=== PATIENT | female | born 1965 | race Caucasian/White ===

== ENCOUNTER 2018-01-03 00:33 | Outpatient (CLI) | payer OTHER, SELFPAY ==
--- NOTE | 2018-01-03 13:17 | DI.MAMMO_ITS ---
SYMPTOMS/DIAGNOSIS: SCREENING, Z12.31, PREVENTATIVE HEALTH CARE, Z00.00 BILATERAL SCREENING MAMMOGRAM: Comparison is made with exams from 2012 through 2015. The breasts are composed of heterogeneously dense, nodular fibroglandular tissue, breast density category C. Scattered benign calcifications are again noted bilaterally. No suspicious masses or suspicious microcalcifications are seen. IMPRESSION: Category 2C, negative mammogram with benign findings. Yearly screening mammography is recommended. SA ASSESSMENT OF FINDINGS: Negative with benign findings. Category 2. Patient will receive a letter notifying them of these results. Bi-RADS category C. The breasts are heterogeneously dense, which may obscure small masses.
== END 2018-01-03 00:53 ==
PROVIDERS: PCP Family Medicine; Visit Provider Family Medicine
DX: Z00.00 Encounter for general adult medical examination without abnormal findings (principal); Z12.31 Encounter for screening mammogram for malignant neoplasm of breast
CPT/HCPCS: 77063; 77067

== ENCOUNTER 2018-01-17 00:29 | Outpatient (CLI) | payer OTHER, SELFPAY ==
--- NOTE | 2018-01-17 12:55 | DI.US_ITS ---
SYMPTOMS/DIAGNOSIS: PELVIC BLOATING, DISCOMFORT, ABD BLOATING, POSTMENOPAUSAL DISORDER, ABD DISTENTION, R14.0, N95.1 PELVIC ULTRASOUND: Pelvic ultrasound was performed transabdominally and transvaginally. Please see the accompanying data sheet for measurements of the pelvic structures. Limited scanning of the kidneys is unremarkable. No free fluid identified in the cul-de -sac. The uterus measures 7.2 x 3.8 x 4.7 cm. There is a small fundal hypoechoic well circumscribed mass probably representing a fibroid measuring about 7 mm in greatest diameter. No other focal abnormality of the myometrium noted. Endometrial stripe is about 3 mm in thickness and appears homogeneous. The ovaries are unremarkable in appearance and symmetrical in size. CONCLUSION: Probable small fundal uterine fibroid. The examination is otherwise unremarkable.
== END 2018-01-17 00:49 ==
PROVIDERS: PCP Family Medicine; Visit Provider Obstetrics & Gynecology Gynecology
DX: R10.2 Pelvic and perineal pain (principal); R14.0 Abdominal distension (gaseous); N95.1 Menopausal and female climacteric states; D25.9 Leiomyoma of uterus, unspecified
CPT/HCPCS: 76830; 76856

== ENCOUNTER 2018-07-03 15:25 | Outpatient (CLI) | payer OTHER, SELFPAY ==
--- NOTE | 2018-07-03 15:24 | DI.RAD_ITS ---
SYMPTOMS/DIAGNOSIS: RIGHT KNEE PAIN RIGHT KNEE: Multiple views. No bone or joint abnormality is identified. The soft tissues are unremarkable. IMPRESSION: Negative examination.
== END 2018-07-03 15:45 ==
PROVIDERS: PCP Family Medicine; Visit Provider Physician Assistant
DX: M25.561 Pain in right knee (principal)
CPT/HCPCS: 73564

== ENCOUNTER 2018-08-01 17:31 | Outpatient (REF) | payer OTHER, SELFPAY ==
--- NOTE | 2018-08-01 16:35 | PAPFT_PTH ---
PATIENT: Nanci Osborn LOC: [facility] U#:[id number] AGE/SX: 52/F ROOM: RE08/01/[address]: Alyssa Mayberry : 1965 BED: DIS: 08/01/2018 SPEC #: [id number] RECD: 08/02/18 12:58 STATUS: JANIE REQ #: [id number] MICHAEL: 08/01/18 16:[address]: Alyssa Mayberry DEPT: [facility] Cytology RECD BY: Candelaria Malin Tissues: 1 - CX/ENDOCX FOR PAP SMEARS Procedures: PAP THIN PREP/UVM Screening HPV DNA PROBE Comments: [id number]
== END 2018-08-01 17:51 ==
LOC: NCHCN 17:31
PROVIDERS: PCP Family Medicine; Visit Provider Family Medicine
DX: Z00.00 Encounter for general adult medical examination without abnormal findings (principal); Z12.4 Encounter for screening for malignant neoplasm of cervix; Z11.51 Encounter for screening for human papillomavirus (HPV); Z01.419 Encounter for gynecological examination (general) (routine) without abnormal findings
CPT/HCPCS: 88142; 87624

== ENCOUNTER 2019-06-17 01:25 | Outpatient (CLI) | payer OTHER, SELFPAY ==
--- NOTE | 2019-06-17 11:45 | DI.NM_ITS ---
APPROVED REPORT Exam: Exercise Treadmill Patient Location: Out-Patient Room/Bed: Stress Nurse: Michaela Delatorre RN BMI: 22.49 Baseline Rhythm: Sinus Rhythm Comment: T wave inversions in leads V1, V2, V3 Medical History Allergies: Sulfa Cardiac Risk Factors: FHX of CAD, Asthma Exercise History: Physically active Lung Sounds: Clear to auscultation Heart Sounds: Regular Stress Test Details Test: Exercise stress testing was performed using a Alphonso protocol. Nuclear Acquisition: Rest Tc-99m/Stress Tc-99m 1 day Rest Isotope: Tc-99m Sestamibi. Dose: 10.5 Date: 06/17/2019 Stress Isotope: Tc-99m Sestamibi. Dose: 33.0 Date: 06/17/2019 HR Resting HR Supine: 47 bpm Max Heart Rate (APMHR): 166 bpm Resting HR Standin bpm Target HR (85% APMHR): 141 bpm Max HR Achieved: 158 bpm % of APMHR: 95 Recovery HR: 65 bpm HR response to stress: Normal HR response to stress BP Resting BP Supine: 158/98 mmHg Resting BP Standin/96 mmHg Max BP: 222/108 mmHg Recovery BP: 164/85 mmHg BP response to stress: Exaggerated response ECG Resting ECG: Sinus Rhythm with TWI anterolaterally Stress ECG: Sinus Tachycardia ST Change: Downsloping ST depressions Lead(s): II, III, aVF, V3, V4, V5, V6 Stage: [address] Deviation: 1.5 mm Arrhythmia: None Recovery ECG: Sinus Rhythm, Sinus Rhythm Recovery ST Change: Downward sloping ST segments Lead(s): II, III, aVF, V3, V4, V5, V6 Recovery ST Deviation: 1.5 mm Recovery Arrhythmia: Brief ventricular trigeminy and quadrigeminy pattern. Clinical Reason for Termination: Fatigue Stress Symptoms: None Exercise duration: 13 min00 sec Highest Stage Reached: Stage 5: 5.0 mph at 18% grade. Exercise capacity: 14.16 METs Functional Capacity: Above average capacity Stress ECG Conclusion 1. Patient exercised for 13 minutes (14 METS). Rate-pressure product was 28,000. 2. The patient had no symptoms suggestive of ischemia. The patient had a hypertensive response to ex ercise. 3. There were 1.5mm horizontal and downsloping ST depressions both during stress and recovery. 4. These ST depressions normalized at 8 minutes of recovery. Critical Notification Physician Notified Date: 06/17/2019 Time: 1350 Physician Name: Dr Pimentel. Protocol Used: Alphonso Protocol Stress Test Summary STAGE Time (mins) Speed (mph) Grade (%) HR BP SYMPTOMS METS Supine 47 158/98 Standing 53 152/96 1 3 1.7 10 83 170/100 4.6 2 6 2.5 12 106 176/85 7 3 9 3.4 14 126 178/95 10.2 4 12 4.2 16 156 182/95 12.9 5 15 5.0 18 156 17.2 1 min recovery 190/96 96 3 min recovery 222/108 77 6 min recovery 164/85 65 10 min recovery 68 MPI Conclusion The ejection fraction was 48% with stress. There were no wall motion abnormalities. There was no evidence of ischemia on the imaging portion of this exam. This represents a discordant nuclear stress test. I discussed the results with the patient. Radiologist Interpretation Radiologist Interpretation by: Smooth Washington MD Interpretation Date/Time: 06/17/2019 15:24:45
[2019-06-17] MEDS: Normal Saline Flush 10 ML SYR IVP (15:00)
== END 2019-06-17 01:45 ==
PROVIDERS: PCP Family Medicine; Visit Provider Family Medicine
DX: R06.09 Other forms of dyspnea (principal); R06.02 Shortness of breath; J45.909 Unspecified asthma, uncomplicated; Z82.49 Family history of ischemic heart disease and other diseases of the circulatory system
CPT/HCPCS: 78452; 93017

== ENCOUNTER 2019-06-17 11:11 | Outpatient (CLI) | payer OTHER, SELFPAY ==
--- NOTE | 2019-06-17 11:15 | DI.CT_ITS ---
EXAM: CT HEAD FACIAL WO CLINICAL HISTORY: fell and hit head, eye, contusion of head, S00.93XA TECHNIQUE: COMPARISON: No exams were available for comparison FINDINGS: CT examination of the head and additional multi slice multi planar facial CT were performed without c ontrast administration. There is an apparent soft tissue hematoma overlying the left frontal/periorb ital region. The left and right orbital contents appear intact. No abnormality of the globe. No re tro bulbar hemorrhage. No cranial or facial fracture. Paranasal sinuses are well aerated as are the mastoid air cells. Temporal bone structures appear intact. No abnormality TM joints. Intracranially, ventricular system is normal appearance. There is no evidence acute intracranial hem orrhage, mass effect, or midline shift. IMPRESSION: Soft tissue edema/hematoma over the left frontal and periorbital region. No evidence of acute fracture, orbital injury, or intracranial injury.
== END 2019-06-17 11:31 ==
PROVIDERS: PCP Family Medicine; Visit Provider Family Medicine
DX: S00.93XA Contusion of unspecified part of head, initial encounter (principal); S00.12XA Contusion of left eyelid and periocular area, initial encounter; R60.0 Localized edema
CPT/HCPCS: 70450; 70486

== ENCOUNTER 2019-06-19 02:47 | Outpatient (CLI) | payer OTHER, SELFPAY | END 2019-06-19 03:07 | PROVIDERS: PCP Family Medicine; Visit Provider Family Medicine | DX: J45.909 Unspecified asthma, uncomplicated (principal); Z53.8 Procedure and treatment not carried out for other reasons ==

== ENCOUNTER 2020-01-06 01:01 | Outpatient (CLI) | payer OTHER, SELFPAY ==
--- NOTE | 2020-01-06 | DI.MAMMO_ITS ---
EXAM: MAMMO SCREENING CLINICAL HISTORY: SCREENING, [facility],Z00.00,Z12.31 TECHNIQUE: Mammograms were interpreted according to the usual protocol including computer analysis w [employer] CAD system, tomosynthesis and C-view imaging. COMPARISON: 2011 through 2017 FINDINGS: The breasts are composed of heterogeneously dense fibroglandular densities, Breast Density category C . No suspicious masses or suspicious microcalcifications are seen. There are scattered benign-appearin g calcifications. There is postsurgical scarring. No skin thickening or abnormal axillary lymph nodes are seen. There has been no significant change from prior exams. IMPRESSION: BI-RADS Cat 2 - Benign Findings Yearly screening mammography is recommended. Breast Density Category C, heterogeneously Dense. The mammogram demonstrates the patient's breast tissue is dense. Dense breast tissue is very common a nd is not abnormal but dense breast tissue can make it harder to find cancer on a mammogram. Also, de nse breast tissue may increase breast cancer risk. This information about the result of the mammogram report was provided to the patient to raise their awareness. Use this report when you speak with the patient about their risks for breast cancer, which includes their family history. At that time, you may recommend additional screening tests (Ultrasound or MRI) as they might be useful based on their r isk. A negative radiographic report should not delay biopsy if a dominant or clinically suspicious mass is present. Up to ten percent of cancers are not identified on mammography. A negative report may reinforce clinical impression. Adenosis and dense breasts may obscure an underlying neoplasm. False positive reports average 6 to 10%.
== END 2020-01-06 01:21 ==
PROVIDERS: PCP Family Medicine; Visit Provider Family Medicine
DX: Z12.31 Encounter for screening mammogram for malignant neoplasm of breast (principal); Z00.00 Encounter for general adult medical examination without abnormal findings
CPT/HCPCS: 77063; 77067

== ENCOUNTER 2020-01-09 08:33 | Outpatient (CLI) | payer OTHER, SELFPAY ==
[2020-01-10 15:09] LABS: COVID-19 RT-PCR Result NEGATIVE (Negative)
== END 2020-01-09 08:53 ==
PROVIDERS: PCP Family Medicine; Visit Provider Family Medicine
DX: Z11.59 Encounter for screening for other viral diseases (principal); Z01.811 Encounter for preprocedural respiratory examination
CPT/HCPCS: U0003

== ENCOUNTER 2020-01-12 04:12 | Outpatient (CLI) | payer OTHER, SELFPAY ==
[2020-01-12] MEDS: Albuterol HFA 18 GM 200 PUFF INH IH (09:22)
[2020-01-12] MEDS: Inhaler, Assist Device 1 EACH MC (09:23)
--- NOTE | 2020-01-14 12:00 | W.PFT ---
Date of service: 01/12/20 Time of Service: 08:04 Pulmonary Function Test Result Interpretation Spirometry: Shows no evidence of obstructive airways disease, no bronchodilator response Lung Volumes: No evidence of restriction, mild hyperinflation and air trapping Diffusion Capacity: Mildly reduced which is normal when corrected to alveolar volume Airway Pressure: Normal Impression While there is no evidence of obstructive airways disease, no bronchodilator response, there is mild hyperinflation and air trapping and mild diffusion defect, this is however normal when corrected to alveolar volume. When the study was compared to 06/13/2016, the patient has a slight improvement in FVC and 100 cc improvement in FEV1 while her total lung capacity has improved, part of this is because measures of hyperinflation and air trapping have also increased. Diffusion capacity has slightly declined Clinical Correlation therefore is recommended.
== END 2020-01-12 04:32 ==
PROVIDERS: PCP Family Medicine; Visit Provider Family Medicine
DX: R06.09 Other forms of dyspnea (principal)
CPT/HCPCS: 94060; 94726; 94729

== ENCOUNTER 2020-03-03 18:07 | Outpatient (REF) | payer OTHER, SELFPAY ==
[2020-03-04 20:15] LABS: COVID-19 RT-PCR UVMMC Result Negative (Negative)
== END 2020-03-03 18:27 ==
LOC: NCHCN 18:07
PROVIDERS: PCP Family Medicine; Visit Provider Nurse Practitioner Family
DX: Z11.59 Encounter for screening for other viral diseases (principal)
CPT/HCPCS: U0003

== ENCOUNTER 2020-03-10 23:24 | Outpatient (CLI) | payer OTHER, SELFPAY ==
--- NOTE | 2020-03-10 | DI.RAD_ITS ---
EXAM: XR FOOT RT COMPLETE CLINICAL HISTORY: RT FOOT PAIN M79.671, TRAUMA TO RT FOOT, PAINFUL SIDE OF FOOT. TECHNIQUE: 2D digital imaging was performed. COMPARISON: No exams were available for comparison FINDINGS: There is an oblique mildly displaced fracture in the mid-distal 3rd of the 5th metatarsal. No radiop aque foreign body. No osseous lesion. No additional fractures evident. Lisfranc joint appears unre markable. IMPRESSION: Oblique mildly displaced fracture of the distal half of the 5th metatarsal. DATA REPOSITORY: RADIATION DOSE DELIVERED:
== END 2020-03-10 23:44 ==
PROVIDERS: PCP Family Medicine; Visit Provider Nurse Practitioner Family
DX: S92.351A Displaced fracture of fifth metatarsal bone, right foot, initial encounter for closed fracture (principal)
CPT/HCPCS: 73630

== ENCOUNTER 2020-03-24 17:26 | Outpatient (REF) | payer OTHER, SELFPAY ==
[2020-03-26 14:10] LABS: COVID-19 RT-PCR UVMMC Result Negative (Negative)
== END 2020-03-24 17:46 ==
LOC: NCHCN 17:26
PROVIDERS: PCP Family Medicine; Visit Provider Nurse Practitioner Family
DX: Z11.59 Encounter for screening for other viral diseases (principal)
CPT/HCPCS: U0003

== ENCOUNTER 2020-04-08 14:20 | Outpatient (CLI) | payer OTHER, SELFPAY ==
--- NOTE | 2020-04-08 13:30 | DI.RAD_ITS ---
EXAM: XR FOOT RT COMPLETE CLINICAL HISTORY: follow up TECHNIQUE: COMPARISON: CR XR FOOT RT COMPLETE from 03/10/2020 FINDINGS: Three views were obtained and show previously described fracture the 5th metatarsal, there appears to be early healing at the fracture site. There appears to be slight interval increase in angulation at the fracture site in comparison with the prior examination of March 10, however this may be due to differences in projection. No other significant findings at this time. IMPRESSION: RADIATION DOSE DELIVERED: Total DLP
--- OUTSIDE RECORDS SUMMARY | 2020-04-08 14:22 | XMS_ITS ---
:1965 Author Care Team Providers Name Role Phone PRAVEEN RENTERIA Primary Care Provider [phone] Allergies Code Code System Name Reaction Severity Status Onset 080072 RxNorm Bactrim ? ? Active ? Medications Name Status Start Date Stop Date ? ? Emily Allergy Active ? Not available CombiPatch 0.05 mg-0.14 mg/24 hr transdermal Active ? Not available Apply 1 patch twice a week by transdermal route. Miralax 17 gram oral powder packet Active ? Not available Take 1 packet every day by oral route. Proair Digihaler 90 mcg/actuation aerosol powder breath act, sen sor Active ? Not available Inhale 2 puffs every 4 hours by inhalation route. Symbicort 160 mcg-4.5 mcg/actuation HFA aerosol inhaler Active ? Not available Inhale 2 puffs twice a day by inhalation route. Xopenex HFA 45 mcg/actuation aerosol inhaler Active ? Not available Inhale 2 puffs every 6 hours by inhalation route as needed. Problems Name Status Onset Date Source ? Asthma Unknown 06/13/2019 ? Mild Intermittent Asthma Active 06/13/2019 ? Procedures None recorded. Results Lab Results None recorded. Past Encounters 08/07/2019 Mild Intermittent Asthma Soraya Marley MD: [address] [place] [address] Dr apryl Hernadez [address] [place] [phone], Ph. 06/13/2019 Mild Intermittent Asthma Soraya Marley MD: [address] [place] [address] Dr apryl Hernadez , [place] [phone], Ph. Social History Tobacco Smoking Status Never Smoker Vaccine List Vaccine Type Hep A, adult 04/09/2017 influenza, injectable, quadrivalent 12/27/2018 pneumococcal polysaccharide PPV23 11/10/2016 Tdap 07/10/2012 Plan of Care Reminders Provider Appointments None ? ? recorded. Lab None ? ? recorded. Referral None ? ? recorded. Procedures None ? ? recorded. Surgeries None ? ? recorded. Imaging None ? ? recorded. Vitals Height Weight BMI Blood Pressure 158.75 cm 58.8 kg 23.3 kg/m2 118/64 mm[Hg]
== END 2020-04-08 14:40 ==
PROVIDERS: PCP Family Medicine; Referring Provider Family Medicine; Visit Provider Physician Assistant Surgical
DX: S92.351A Displaced fracture of fifth metatarsal bone, right foot, initial encounter for closed fracture (principal)
CPT/HCPCS: 73630

== ENCOUNTER 2020-04-22 14:12 | Outpatient (CLI) | payer OTHER, SELFPAY ==
--- NOTE | 2020-04-22 14:00 | DI.RAD_ITS ---
EXAM: XR FOOT RT COMPLETE CLINICAL HISTORY: f/u 5th MT frx. TECHNIQUE: 2D digital imaging was performed. COMPARISON: CR XR FOOT RT COMPLETE from 04/08/2020 FINDINGS: No radiographic change in the appearance of the oblique fracture of the mid and distal shaft of the 5 th metatarsal. Minimal callus formation. No further displacement evident. No additional fracture s een. Some nonuse osteopenia is evident on today's images. IMPRESSION: DATA REPOSITORY: RADIATION DOSE DELIVERED:
== END 2020-04-22 14:32 ==
PROVIDERS: PCP Family Medicine; Visit Provider Student in an Organized Health Care Education/Training Program
DX: S92.351A Displaced fracture of fifth metatarsal bone, right foot, initial encounter for closed fracture (principal)
CPT/HCPCS: 73630

== ENCOUNTER 2020-05-20 14:57 | Outpatient (CLI) | payer OTHER, SELFPAY ==
--- NOTE | 2020-05-20 13:15 | DI.RAD_ITS ---
EXAM: XR FOOT RT COMPLETE CLINICAL HISTORY: follow up. TECHNIQUE: 2D digital imaging was performed. COMPARISON: CR XR FOOT RT COMPLETE from 04/22/2020 FINDINGS: There is further healing at the fracture site is at the mid-distal diaphysis of the 5th meta tarsal. Some further callus formation but the fracture line is still quite evident on the oblique view; less so on the AP view. Fracture line still visible in the lateral view. IMPRESSION: Mild further healing. Fracture line still visible. No further displacement. DATA REPOSITORY: RADIATION DOSE DELIVERED:
== END 2020-05-20 14:58 | disposition home or self-care (01) ==
LOC: DIORS 14:58
PROVIDERS: PCP Family Medicine; Referring Provider Family Medicine; Visit Provider Physician Assistant Surgical
DX: S92.351D Displaced fracture of fifth metatarsal bone, right foot, subsequent encounter for fracture with routine healing (principal)
CPT/HCPCS: 73630

== ENCOUNTER 2020-06-17 01:50 | Outpatient (CLI) | payer OTHER, SELFPAY ==
--- NOTE | 2020-06-17 10:45 | DI.RAD_ITS ---
EXAM: XR FOOT RT COMPLETE CLINICAL HISTORY: f/u R 5th MT fracture,S92.351D. TECHNIQUE: 2D digital imaging was performed. COMPARISON: CR XR FOOT RT COMPLETE from 05/20/2020 FINDINGS: Again noted is a healing for a oblique fracture of the 5th metatarsal diaphysis. No further displace ment. Minimal increase in callus formation. Very little change from the previous study. No additio nal fractures identified. IMPRESSION: DATA REPOSITORY: RADIATION DOSE DELIVERED:
== END 2020-06-17 02:10 ==
PROVIDERS: PCP Family Medicine; Visit Provider Student in an Organized Health Care Education/Training Program
DX: S92.351D Displaced fracture of fifth metatarsal bone, right foot, subsequent encounter for fracture with routine healing (principal)
CPT/HCPCS: 73630

== ENCOUNTER 2020-12-24 09:42 | Outpatient (REF) | payer OTHER, SELFPAY ==
[2020-12-25 01:34] LABS: COVID-19 RT-PCR UVMMC Result Negative (Negative)
== END 2020-12-24 09:43 | disposition home or self-care (01) ==
LOC: NCHCN 09:42
PROVIDERS: PCP Family Medicine; Visit Provider Family Medicine
DX: Z20.822 Contact with and (suspected) exposure to COVID-19 (principal)
CPT/HCPCS: U0003

== ENCOUNTER 2021-02-02 16:17 | Outpatient (REF) | payer OTHER, SELFPAY ==
[2021-02-03 02:26] LABS: COVID-19 RT-PCR UVMMC Result Negative (Negative)
== END 2021-02-02 16:18 | disposition home or self-care (01) ==
LOC: NCHCN 16:17
PROVIDERS: PCP Family Medicine; Visit Provider Internal Medicine
DX: Z20.822 Contact with and (suspected) exposure to COVID-19 (principal)
CPT/HCPCS: U0003

== ENCOUNTER 2022-06-05 15:26 | Outpatient (CLI) | payer BC, SELFPAY ==
--- NOTE | 2022-06-05 | DI.RAD_ITS ---
Exam(s) XR FOOT RT COMPLETE EXAM: XR FOOT RT COMPLETE CLINICAL HISTORY: METATARSALGIA RT, M77.41, RT PINKY TOE DISLOCATION. TECHNIQUE: 2D digital imaging was performed of the right foot. Three images were obtained. AP, obl ique and lateral views were obtained. COMPARISON: CR XR FOOT RT COMPLETE from 06/17/2020 FINDINGS: BONES: There is an acute fracture of the midshaft of the proximal phalanx of the 5th toe. 2-3 mm med ial displacement of the distal fracture is noted. There is an old healed 5th metatarsal fracture. N o bony destructive lesion is seen. JOINTS: No dislocation present. SOFT TISSUE: Normal. IMPRESSION: Acute mildly displaced fracture of the proximal phalanx of the 5th toe. DATA REPOSITORY: RADIATION DOSE DELIVERED:
== END 2022-06-05 15:46 ==
LOC: DI 15:26
PROVIDERS: PCP Family Medicine; Visit Provider Family Medicine
DX: M79.671 Pain in right foot (principal); M77.41 Metatarsalgia, right foot; S92.511A Displaced fracture of proximal phalanx of right lesser toe(s), initial encounter for closed fracture; X58.XXXA Exposure to other specified factors, initial encounter
CPT/HCPCS: 73630

== ENCOUNTER → 2022-11-14 02:32 | Outpatient (CLI) | payer BC, SELFPAY ==
--- NOTE | 2022-11-14 | DI.MAMMO_ITS ---
Exam(s) MAMMO SCREENING EXAM: MAMMO SCREENING CLINICAL HISTORY: SCREENING, Z12.31. TECHNIQUE: Bilateral full field digital CC and MLO mammographic images were obtained with 3D tomosyn thesis and utilizing computer aided detection (CAD). COMPARISON: Prior mammograms were reviewed. FINDINGS: Fibroglandular tissue pattern is again noted be moderately dense. There are no new spiculated masses nor malignant appearing microcalcification groups. Numerous benign-appearing microcalcifications are again noted in both breasts. There is no new significant architectural distortion nor skin thickening-retraction. IMPRESSION: No radiographic evidence of malignancy. Stable benign-appearing findings. BI-RADS Category 2 - Benign Findings Breast Density - Category C - Heterogeneously dense Breast density Category C or D implies that the patient has dense breast tissue. Dense breast tissue can make it harder to find cancer on a mammogram. Dense breast tissue is also associated with an incr eased risk of breast cancer. This information about the result of the mammogram report was provided to the patient to raise their awareness. Use this report when you speak with the patient about their risks for breast cancer, which includes their family history. At that time, you may recommend additional screening tests (Ultrasoun d or MRI) as these tests may add significant information. A negative radiographic report should not delay biopsy if a dominant or clinically suspicious mass is present. Up to ten percent of cancers are not identified on mammography. A negative report may reinforce clinical impression. Adenosis and dense breasts may obscure an underlying neoplasm. False positive reports average 6 to 10%. Patient will receive a letter notifying them of these results.
== END ==
PROVIDERS: PCP Family Medicine; Visit Provider Family Medicine
DX: Z12.31 Encounter for screening mammogram for malignant neoplasm of breast (principal)
CPT/HCPCS: 77063; 77067

== ENCOUNTER 2023-07-10 10:34 | Outpatient (CLI) | payer BC, SELFPAY ==
--- NOTE | 2023-07-10 10:30 | RT.EKG_ITS ---
APPROVED REPORT Exam: Resting ECG Reason for Exam: CAD Patient Location: O HR:57 bpm ECG Measurements Heart Rate 57 AXIS HI 149 P 59 QRSd 79 QRS 39 QT 445 T 19 QTc 434 Conclusion Sinus rhythm...normal P axis, V-rate 50- 99 Normal Electrocardiogram
== END 2023-07-10 10:35 | disposition home or self-care (01) ==
LOC: DI.CARD 10:35
PROVIDERS: PCP Family Medicine; Visit Provider Internal Medicine Cardiovascular Disease
DX: I25.10 Atherosclerotic heart disease of native coronary artery without angina pectoris (principal)
CPT/HCPCS: 93010

== ENCOUNTER 2023-09-06 11:26 | Outpatient (REF) | payer BC, SELFPAY ==
--- NOTE | 2023-09-06 16:50 | PAPFT_PTH ---
PATIENT: Nanci Osborn LOC: [facility]#:[id number] AGE/SX: 57/F ROOM: RE09/06/[address]: Simran Dolan : 1965 BED: DIS: 09/06/2023 SPEC #: [id number] RECD: 09/07/23 13:36 STATUS: JANIE REPawan #: [id number] MICHAEL: 09/06/23 16:[address]: Simran Dolan DEPT: [facility] Cytology RECD BY: Candelaria Malin ENTERED: 09/07/23 13:36 SP TYPE: PAPFT OTHR DR: Alyssa Mayberry Tissues: 1 - CX/ENDOCX FOR PAP SMEARS Procedures: PAP THIN PREP/UVM Screening HPV DNA PROBE Comments: [id number]
== END 2023-09-06 11:27 | disposition home or self-care (01) ==
LOC: NCHCN 11:26
PROVIDERS: PCP Family Medicine; Visit Provider Family Medicine
DX: Z12.4 Encounter for screening for malignant neoplasm of cervix (principal); Z11.51 Encounter for screening for human papillomavirus (HPV); Z00.00 Encounter for general adult medical examination without abnormal findings
CPT/HCPCS: 88142; 87624

== ENCOUNTER 2024-04-24 13:39 | Outpatient (CLI) | payer OTHER, SELFPAY ==
[2024-04-24 13:45] LABS: ALT 38 U/L (14-59); AST 25 U/L (15-37); Albumin 3.7 g/dL (3.4-5.0); Alkaline Phosphatase 66 U/L (46-116); Anion Gap 3.1 mmol/L (3-11); BUN 17 mg/dL (7-18); Bilirubin, Total 0.34 mg/dL (0.2-1.0); CO2 33.9 mmol/L (21.0-32.0); Calcium 8.7 mg/dL (8.5-10.1); Chloride 105 mmol/L (98-107); Glucose 97 mg/dL (74-106); Potassium 4.3 mmol/L (3.5-5.1); Sodium 142 mmol/L (136-145); Total Protein 7.6 g/dL (6.4-8.2)
== END 2024-04-24 13:40 | disposition home or self-care (01) ==
LOC: LBO 13:39
PROVIDERS: PCP Family Medicine; Referring Provider Obstetrics & Gynecology Gynecology; Visit Provider Obstetrics & Gynecology Gynecology
DX: Z79.890 Hormone replacement therapy (principal)
CPT/HCPCS: 36415; 80053

== ENCOUNTER 2024-06-17 15:48 | Outpatient (CLI) | payer OTHER, SELFPAY ==
[2024-06-17 15:52] LABS: Abs Immature Grans 0.02 10^3/uL (0.0-0.06); Absolute Basophil Count 0.06 10^3/uL (0.0-0.2); Absolute Eosinophil Count 0.09 10^3/uL (0.0-0.7); Absolute Lymphocyte Count 1.86 10^3/uL (1.2-3.4); Absolute Monocyte Count 0.59 10^3/uL (0.1-0.8); Absolute Neutrophil Count 6.44 10^3/uL (1.2-6.7); Basophils % 0.7 %; HCT 37.9 % (36.0-46.0); HGB 12.3 g/dL (11.2-15.7); Immature Grans % 0.2 %; Lymphocytes % 20.5 %; MCH 29.1 pg (27.0-33.0); MCHC 32.5 % (32.0-36.0); MCV 90 fL (80-95); MPV 10.1 fL (8.0-11.0); Monocytes % 6.5 %; Neutrophils % 71.1 %; Platelet Count 394 10^3/uL (130-400); RBC 4.23 10^6/uL (3.93-5.22); RDW 12.6 % (11.7-14.6); RDW-SD 41.1 fL; WBC 9.06 10^3/uL (4.4-10.8)
== END 2024-06-17 15:49 | disposition home or self-care (01) ==
LOC: LBO 15:49
PROVIDERS: PCP Family Medicine; Visit Provider Obstetrics & Gynecology
DX: N93.9 Abnormal uterine and vaginal bleeding, unspecified (principal); R06.02 Shortness of breath; N83.8 Other noninflammatory disorders of ovary, fallopian tube and broad ligament; Z87.42 Personal history of other diseases of the female genital tract; N95.1 Menopausal and female climacteric states
CPT/HCPCS: 36415; 85025

== ENCOUNTER 2024-07-31 00:33 | Outpatient (CLI) | payer OTHER, SELFPAY ==
--- NOTE | 2024-07-31 13:45 | DI.US_ITS ---
APPROVED REPORT Exam: Exercise Treadmill Patient Location: Out-Patient Room/Bed: Stress Nurse: Allyson Villegas RN Ordering Provider:CLEM TOMLINSOND, Contact Number: BMI: 22.14 Baseline Rhythm: Sinus Bradycardia Indications: Decreased exercise capacity, chest pain Medical History Medical History: CAD, SOB on exertion Cardiac Medications: Albuterol sulfate, aspirin, estradiol patch, fexofenadine, kyleena, sertraline, atorvastatin Allergies: Bactrim Cardiac Risk Factors: Family hx, CVD Previous Cardiac Procedures: Cardiac stent (LAD)-2019 Pretest Chest Pain Characteristics: None Exercise History: Physically active Physical Disabilities: None Lung Sounds: Clear to auscultation Heart Sounds: Regular Stress Test Details Test: Exercise stress testing was performed using a Alphonso protocol. Rest Stress HR Resting HR Supine: 50 bpm Max Heart Rate (APMHR): 161 bpm Resting HR Standin bpm Target HR (85% APMHR): 137 bpm Max HR Achieved: 146 bpm % of APMHR: 91 Recovery HR: 61 bpm HR response to stress: Normal HR response to stress BP Resting BP Supine: 128/72 mmHg Resting BP Standin/70 mmHg Max BP: 180/82 mmHg Recovery BP: 124/78 mmHg BP response to stress: Normal blood pressure response to stress. ECG Resting ECG: Sinus Bradycardia Ectopy: None Stress ECG: Sinus Tachycardia ST Change: No significant ST segment changes noted Arrhythmia: None Recovery ECG: Sinus Rhythm Recovery ST Change: No significant ST segment changes noted Recovery Arrhythmia: Rare PAC Clinical Reason for Termination: Target HR Achieved, artifact Stress Symptoms: None Exercise duration: 12 min59 sec Highest Stage Reached: Stage 5: 5.0 mph at 18% grade. Exercise capacity: 14.15 METs Angina Score: None Kimbrough Treadmill Score: 11.7 Rate Pressure Product: 21523 Stress ECG Conclusion 1. Resting electrocardiogram was normal 2. Patient exercised on the Alphonso protocol at a workload of 14 METS, completing 1 minute of stage V 3. Normal heart rate and blood pressure response to exercise. 4. Patient achieved 91% of maximal predicted heart rate for age 5. There was no electrocardiographic or echocardiographic evidence of myocardial ischemia 6. There were no significant dysrhythmias Kimbrough Treadmill Score is 11.7 which is Low risk. Stress Test Summary STAGE Time (mins) Speed (mph) Grade (%) HR BP SpO2 SYMPTOMS METS Supine 50 128/72 96% Standing 55 134/70 1 3 1.7 10 88 138/78 94% 4.5 2 6 2.5 12 102 168/88 98% 7 3 9 3.4 14 114 170/80 10 4 12 4.2 16 145 13 1 min recovery 73 180/82 3 min recovery 61 124/78
== END 2024-07-31 00:53 ==
LOC: DI 00:33
PROVIDERS: PCP Family Medicine; Visit Provider Internal Medicine Cardiovascular Disease
DX: I25.10 Atherosclerotic heart disease of native coronary artery without angina pectoris (principal)
CPT/HCPCS: 93350; 93017

== ENCOUNTER 2024-10-20 02:30 | Outpatient (CLI) | payer OTHER, SELFPAY ==
--- NOTE | 2024-10-20 | DI.MAMMO_ITS ---
Exam(s) MAMMO SCREENING EXAM: MAMMO SCREENING CLINICAL HISTORY: Screening, Z12.31. TECHNIQUE: Bilateral full field digital CC and MLO mammographic images were obtained with 3D tomosynthesis and utilizing computer aided detection (CAD). COMPARISON: Prior mammograms were reviewed. Previous bilateral reduction surgery. FINDINGS: Fibroglandular tissue is again noted be moderately dense. In the left breast on CC view there is an increase in amount of architectural distortion located 3.5 cm in from the nipple on the CC view. Spot compression and ultrasound recommended. In the right breast there are few small nodular densities noted posteriorly, more evident than previous. Spot compression views and ultrasound recommended There benign microcalcifications and macrocalcifications scattered throughout both breasts. There are no obvious malignant-appearing microcalcification groups. No skin thickening-retraction IMPRESSION: 1. There appears to be increase in architectural distortion in the left breast, best seen on the CC view. Spot compression views and ultrasound recommended to rule out malignancy at this location. 2. Nodular densities posteriorly in the opposite-right breast. Also require spot compression views and ultrasound. BI-RADS Category 0 - Incomplete: Need additional imaging evaluation Breast Density - Category C - The breast are heterogeneously dense, which may obscure small masses. Breast density Category C or D implies that the patient has dense breast tissue. Dense breast tissue can make it harder to find cancer on a mammogram. Dense breast tissue is also associated with an increased risk of breast cancer. This information about the result of the mammogram report was provided to the patient to raise their awareness. Use this report when you speak with the patient about their risks for breast cancer, which includes their family history. At that time, you may recommend additional screening tests (Ultrasound or MRI) as these tests may add significant information. A negative radiographic report should not delay biopsy if a dominant or clinically suspicious mass is present. Up to ten percent of cancers are not identified on mammography. A negative report may reinforce clinical impression. Adenosis and dense breasts may obscure an underlying neoplasm. False positive reports average 6 to 10%. Patient will receive a letter notifying them of these results.
== END 2024-10-20 02:50 ==
LOC: DI 02:30
PROVIDERS: PCP Family Medicine; Visit Provider Family Medicine
DX: Z12.31 Encounter for screening mammogram for malignant neoplasm of breast (principal); R92.333 Mammographic heterogeneous density, bilateral breasts
CPT/HCPCS: 77063; 77067

== ENCOUNTER 2024-11-18 02:08 | Outpatient (CLI) | payer OTHER, SELFPAY ==
--- NOTE | 2024-11-18 | DI.US_ITS ---
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 TECHNIQUE: Craniocaudal and mediolateral oblique Full Field Digital Mammography views of the bilateral breast with Computer Aided Diagnosis followed by Tomosynthesis and complete bilateral breast ultrasound. All 4 quadrants, the retroareolar region and the axilla of both breast were evaluated sonogra phically. COMPARISON: Comparison is made with prior examinations. FINDINGS: The patient has a history of bilateral breast reduction surgery. Mammography/Tomosynthesis: Masses/Architectural Distortion: There are no new areas of architectural distortion or breast nodules present. The areas of concern are unchanged compared to prior examinations. Microcalcifictions: No suspicious pleomorphic-type are seen. Skin Thickening/Nipple Retraction: None. Complete bilateral breast US: Echotexture: Normal appearance of the glandular tissue. There is dense fibroglandular tissue some sonographically particularly in the retroareolar regions bilaterally. Shadowing: No suspicious foci. Cyst: None. Solid lesions: None seen. Ductal dilation: None. IMPRESSION: 1. No evidence of malignancy is noted. 2. Unless there is more urgent need, follow-up screening mammography is recommended, as per [place] [employer] guidelines. 3. The findings were discussed with the patient on the date of the examination. BI-RADS Category 1 - Negative Breast Density - Category C - The breast are heterogeneously dense, which may obscure small masses. Breast density Category C or D implies that the patient has dense breast tissue. Dense breast tissue can make it harder to find cancer on a mammogram. Dense breast tissue is also associated with an increased risk of breast cancer. This information about the result of the mammogram report was provided to the patient to raise their awareness. Use this report when you speak with the patient about their risks for breast cancer, which includes their family history. At that time, you may recommend additional screening tests (Ultrasound or MRI) as these tests may add significant information. A negative radiographic report should not delay biopsy if a dominant or clinically suspicious mass is present. Up to ten percent of cancers are not identified on mammography. A negative report may reinforce clinical impression. Adenosis and dense breasts may obscure an underlying neoplasm. False positive reports average 6 to 10%. Patient will receive a letter notifying them of these results.
== END 2024-11-18 02:28 ==
LOC: DI 02:08
PROVIDERS: PCP Family Medicine; Visit Provider Family Medicine
DX: Z12.31 Encounter for screening mammogram for malignant neoplasm of breast (principal); R92.8 Other abnormal and inconclusive findings on diagnostic imaging of breast; R92.333 Mammographic heterogeneous density, bilateral breasts
CPT/HCPCS: 76642; 77063; 77067

== ENCOUNTER 2025-02-05 12:22 | Day surgery (SDC) | payer OTHER, SELFPAY ==
--- NOTE | 2025-02-04 17:53 | W.ANESPRE ---
General Info Date of Service Date Performed: 02/05/25 Height: 5 ft 3 in Weight: 58.06 kg Body Mass Index (BMI): 22.6 Surgical Procedure: Operation Date: 02/05/25 13:50 Proposed Procedure Side Surgeon p Colonoscopy/Gastroscopy Sheree Kang MD Meds Allergies and Home Medications Allergies Allergy/AdvReac Type Severity Reaction Status Date / Time sulfamethoxazole (From AdvReac Mild BODY ACHES Verified 02/05/25 12:59 Bactrim) trimethoprim (From Bactrim) AdvReac Mild BODY ACHES Verified 02/05/25 12:59 Home Medication Medication Instructions Recorded albuterol sulfate 90 mcg/actuation 1 - 2 puff inhalation Q6H PRN 09/22/14 aerosol inhaler aspirin 81 mg tablet,delayed 81 mg PO DAILY #30 tabs 07/01/19 release atorvastatin 80 mg tablet 80 mg PO DAILY #30 tabs 07/01/19 fexofenadine 180 mg tablet 180 mg PO DAILY PRN 12/21/20 (Aller-Ease) levonorgestrel 17.5 mcg/24 hr (up 1 device intrauterine ONCE #1 ea 01/16/21 to 5 yrs) 19.5mg intrauterine device (Kyleena) benzonatate 100 mg capsule 100 mg PO BID PRN 01/20/25 magnesium 200 mg tablet 400 mg PO DAILY 01/20/25 nitroglycerin 0.4 mg sublingual 0.4 mg sublingual Q5M PRN 01/20/25 tablet (Nitrostat) bisacodyl 5 mg tablet,delayed 5 mg PO ONCE Colonoscopy Bowel 01/29/25 release Prep #4 tabs gabapentin 100 mg capsule 300 mg PO QHS 01/29/25 polyethylene glycol 3350 17 238 g PO ONCE #238 grams 01/29/25 gram/dose oral powder Current Visit Medications: Current Medications Generic Name Dose Route Start Last Admin Trade Name Freq PRN Reason Stop Dose Admin Ringer's Solution 1,000 mls @ 80 mls/hr 02/05/25 06:00 IV 02/05/25 23:59 INFUSION ARABELLA IV Miscellaneous Supplies 1 each 02/05/25 06:00 Iv Access IV 02/05/25 23:59 DIRECTED ARABELLA Sodium Biphosphate/Sodium Phosphate 133 ml 02/05/25 06:00 Na Phosphate Enema-Adult 133 Ml Btl CA 02/05/25 23:59 DIRECTED PRN Sodium Chloride 0 ml 02/05/25 06:00 Normal Saline Flush 10 Ml Syr IV 02/05/25 23:59 PRN PRN Sodium Chloride 0 ml 02/05/25 06:00 Normal Saline 10 Ml Vial IJ 02/05/25 23:59 DIRECTED PRN Sterile Water 0 ml 02/05/25 06:00 Water,Injection,Sterile 10 Ml Vial IJ 02/05/25 23:59 DIRECTED PRN PFSH Active Problems Active Problems: Problem Status Onset Code History of postmenopausal bleeding Acute Z87.42 Ovarian mass, right Acute N83.8 Abnormal uterine bleeding (AUB) Acute N93.9 Hormone replacement therapy Acute Z79.890 IUD (intrauterine device) in place Acute Z97.5 Menopausal and female climacteric states Acute N95.1 Fracture of 5th metatarsal Acute S92.353A Coronary artery disease Chronic I25.10 Shortness of breath on exertion Acute R06.02 Contusion of head Acute S00.93XA 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 No evidence of pelvic floor dysfunction or significant pelvic organ prolapse. Stage I cystocele on today's exam. No evidence of rectocele. Normal anal sphincter tone I recommended for further evaluation a pelvic ultrasound and a follow-up by phone regarding the results. No plans for physical therapy referral at this time Perimenopausal vasomotor symptoms 12/2016 HRT with improvement in sx. Surgical History Surgical History H/O heart artery stent Reduction mammoplasty AGE 18 Tobacco Smoking/Tobacco Use Status: Never Passive smoking exposure: Yes Second hand exposure: No Alcohol Alcohol Intake: never Substance Use Substance use: Never Substance use type: does not use Prental History History 2 Para Hx # Term Pregnancies 2 Multiple births Hx # Pregnancies Ectopic pregnancies AB induced Hx Number of Living Children AB spontaneous Vital Signs and Lab Results Vital Signs Comment Vital Signs Comment:: Temp Pulse Resp BP Pulse Ox 36.4 C L 48 L 14 127/80 99 02/05/25 12:44 02/05/25 12:44 02/05/25 12:44 02/05/25 12:44 02/05/25 12:44 Imaging and Studies Imaging and Studies Study information below may be from another EMR and interpreted by another provider. Please see original notes in EMR for more complete details. EKG Summary: Exam: Resting ECG Reason for Exam: CAD Patient Location: O HR:57 bpm ECG Measurements Heart Rate 57 AXIS CA 149 P 59 QRSd 79 QRS 39 QT 445 T19 QTc 434 Conclusion Sinus rhythm...normal P axis, V-rate 50- 99 Normal Electrocardiogram Stress Test Summary: Stress ECG Conclusion 1. Resting electrocardiogram was normal 2. Patient exercised on the Alphonso protocol at a workload of 14 METS, completing 1 minute of stage V 3. Normal heart rate and blood pressure response to exercise. 4. Patient achieved 91% of maximal predicted heart rate for age 5. There was no electrocardiographic or echocardiographic evidence of myocardial ischemia 6. There were no significant dysrhythmias Kimbrough Treadmill Score is 11.7 which is Low risk. Stress ECG Conclusion 1. Patient exercised for 13 minutes (14 METS). Rate-pressure product was 28,000. 2. The patient had no symptoms suggestive of ischemia. The patient had a hypertensive response to exercise. 3. There were 1.5mm horizontal and downsloping ST depressions both during stress and recovery. 4. These ST depressions normalized at 8 minutes of recovery. Echocardiogram Summary: 1. Left ventricle: The cavity size was normal. Wall thickness was normal. Systolic function was vigorous. The estimated ejection fraction was 65-70%. Wall motion was normal; there were no regional wall motion abnormalities. 2. Right ventricle: The cavity size was normal. Wall thickness was normal. Systolic function was normal. Pulmonary Function Summary: While there is no evidence of obstructive airways disease, no bronchodilator response, there is mild hyperinflation and air trapping and mild diffusion defect, this is however normal when corrected to alveolar volume. When the study was compared to 06/13/2016, the patient has a slight improvement in FVC and 100 cc improvement in FEV1 while her total lung capacity has improved, part of this is because measures of hyperinflation and air trapping have also increased. Diffusion capacity has slightly declined Clinical Correlation therefore is recommended. Anesthesia Assessment and Plan Anesthesia History Personal History: No History of Anesthesia Complications Family History: No Family History of Anesthesia Complications Exercise Tolerance Exercise Tolerance: Metabolic Equivalents>4 Pertinent Negatives Pertinent Negatives: No Major Pulmonary Symptoms or Complaints, No History of CVA/TIA and Other (recurrent GERD at home, controlled with medication) Cardiac & Pulmonary Exam Cardiac Exam: Normal S1/S2 Heart Sounds and Other (baseline bradycardia) Pulmonary Exam: Clear Bilateral Breath Sounds Implantable Cardiac Device Does patient have a Pacemaker or an ICD?: No Airway Exam Known Difficult Airway: No Mallampati Class: 2 Mouth Opening: Normal (> 3cm) Thyromental Distance: Greater than 3 cm Neck Range of Motion: Full ROM Neck Circumference: Normal Teeth Condition: Loose or Chipped (missing crown top right molar) ASA Classification ASA Score: ASA 2 Emergency Case?: No NPO Status NPO Status: NPO Clears >2 hours, Solids >8 hours Anesthesia Plan Resuscitation Status: Full Code Anesthesia Technique: General Anesthesia Airway Planned: Natural Airway Monitors Used: Standard Monitors
[2025-02-05 12:44] VITALS: BP 127/80; PULSE 48; RESP 14; TEMP 36.4; O2SAT 99
[2025-02-05] MEDS: Lactated Ringers 1,000 ML 80 ML IV (13:08)
[2025-02-05 14:12] VITALS: BMI 22.6
--- NOTE | 2025-02-05 14:20 | W.PM.DSUDISC ---
Date of service: 02/05/25 Discharge Plan Disposition Patient Disposition: Home Condition: Stable Discharge Details Attending Provider: Sheree Kang Primary Care Provider: Simran Dolan Home Meds and New Rx's Prescriptions: New pantoprazole 40 mg tablet,delayed release (DR/EC) 40 mg PO DAILY Qty: 90 3RF sucralfate [Carafate] 1 gram tablet 1 g PO QACHS 30 Days Qty: 120 0RF Continued atorvastatin 80 mg tablet 80 mg PO DAILY Qty: 30 3RF aspirin 81 mg tablet,delayed release (DR/EC) 81 mg PO DAILY Qty: 30 0RF Kyleena 17.5 mcg/24 hrs (5 yrs) 19.5 mg intrauterine device 1 device intrauterine ONCE Qty: 1 0RF albuterol sulfate 8.5 GM HFA aerosol inhaler 1 - 2 puff Inhalation Q6H PRN fexofenadine [Aller-Ease] 180 mg tablet 180 mg PO DAILY PRN Rx Instructions: DURING THE SUMMER benzonatate 100 mg capsule 100 mg PO BID PRN nitroglycerin [Nitrostat] 0.4 mg tablet, sublingual 0.4 mg sublingual Q5M PRN Rx Instructions: do not exceed 3 doses per episode magnesium 200 mg tablet 400 mg PO DAILY gabapentin 100 mg capsule 300 mg PO QHS Discontinued bisacodyl 5 mg tablet,delayed release (DR/EC) 5 mg PO ONCE Qty: 4 0RF Rx Instructions: Per Colonoscopy bowel prep instructions polyethylene glycol 3350 17 gram/dose powder 238 g PO ONCE Qty: 238 0RF Rx Instructions: For Colonoscopy bowel prep, as directed by office Discharge Instructions Additional Instructions: Colonoscopy today is normal, no polyps or abnormalities. Next screening colonoscopy will be due in 10 years. EGD today shows erosive gastritis and stomach ulcer. One of the erosions is deep enough to be referred to as ulcer. The antrum is friable and irritated, and there were areas of old and fresh blood in the stomach when I entered it. No sign of major active bleeding but it appears these bleed off and on. I took biopsies of the duodenum as planned (it looked normal), and biopsied the antrum for H pylori testing and also biopsied the largest erosion/ulcer. Largest erosion/ulcer had exudate in its base and was not the area bleeding. The esophagus looked mildly irritated so I biopsied that as well. No sign of barretts esophagus but biopsy will help me be sure. Treatment for these problems is expected to make your epigastric pain go away. I recommend pantoprazole 40mg daily for 3 months then a repeat EGD to reassess for resolution of the ulceration. We can decide on prison duration of treatment in office after we have biopsy results and can discuss your symptoms together at length. Carafate is optional but would help potentially heal the areas of erosion/ulcer faster. I am sending both prescriptions in for you, please start them as soon as you are able. See me in office for follow up on 02/27/25 at 8am. If this doesnt work for you please call the office and reschedule. I want to check your symptoms in 2-4 weeks, and plan our future EGD. Nice to meet you. Stand Alone Forms: Anesthesia Discharge Inst., Olga Vera (DSU), Portal Information Referrals: Sheree Kang MD [ [facility] STAFF PHYSICIAN, Surgery] Activity:: Activity as Tolerated Diet:: As Tolerated Discharge Orders Discharge Orders: Discharge Order (Routine); Ordered 02/05/25 Ordered By: Sheree Kang DS: Diagnosis Discharge Diagnosis (1) Epigastric pain: Status: Acute (2) Encounter for screening colonoscopy: Status: Acute (3) Erosive gastritis with hemorrhage: Status: Acute (4) Gastric ulcer: Status: Acute (5) Esophagitis determined by endoscopy: Status: Acute
--- NOTE | 2025-02-05 14:29 | BOWEL_PTH ---
PATIENT: Nanci Osborn LOC: [facility] U#:[id number] AGE/SX: 59/F ROOM: RE02/05/[address]: Sheree Kang MD : 1965 BED: DIS: 02/05/2025 SPEC #: [id number] RECD: 02/05/25 17:12 STATUS: JANIE RE #: [id number] MICHAEL: 02/05/25 14:[address]: Sheree Kang DEPT: Surgical Specimen RECD BY: Candelaria Malin ENTERED: 02/05/25 17:13 SP TYPE: Bowel OTHR DR: Simran Dolan Tissues: 1 - BIOPSY BOWEL 2 - STOMACH BIOPSY 3 - STOMACH BIOPSY 4 - ESOPHAGUS BIOPSY Procedures: GROSS AND MICRO LEVEL 4 Comments: [id number]
--- NOTE | 2025-02-05 14:36 | ENDO_ITS ---
Date of service: 02/05/25 Time of Service: 14:36 Endoscopy Report DATE OF PROCEDURE: 02/05/25 PRE-OP DIAGNOSIS: Epigastric pain POST-OP DIAGNOSIS: same (erosive gastritis, gastric ulcer) PROCEDURE: EGD with biopsy SURGEON: Sheree Kang ANESTHESIA TYPE: General:No Airway ESTIMATED BLOOD LOSS: 2 PATHOLOGY: other (1. duodenum biopsy. 2. gastric ulcer biopsy. 3. antrum biopsy. 4. distal esophagus biopsy) COMPLICATIONS: None DISPOSITION: same day INDICATIONS: Evaluation of upper digestive system for epigastric pain source/cause PROCEDURE DESCRIPTION: Lubricated endoscope was passed through a bite block into the second portion of the duodenum. The endoscope was withdrawn and the duodenum stomach and esophageal mucosa examined. The duodenum appeared normal. There is no inflammation or ulceration or erosion. The antrum appears severely inflamed with erosions and evidence of acute and chronic inflammation. There is evidence of recent bleeding with flecks of old an d fresh blood. There is an antral ulcer, with exudate in its base. Size is small, approximately 10mm in size. No bleeding. The fundus appears normal. The cardia appears normal. The endoscope was retroflexed and there is no evidence of hiatal hernia. There is blood present in the upper stomach, likely bleeding back from antrum. GE junction is at 39cm from the incisors. The distal esophagus is mildly inflamed, without ulceration, varices or candidiasis. The Z-line is regular and there is no evidence of Stokes's esophagus. Remainder of the esophagus appears normal Cold forceps biopsies obtained from the duodenum the antrum for microscopic evaluation for celiac sprue and H. pylori. Gastric ulcer and distal esophagus were biopsied with cold forceps for microscopic assessment. The upper digestive system was desufflated and the endoscope withdrawn. No complications. Assessment and plan: epigastric pain erosive gastritis gastric ulcer esophagitis, mild Start PPI - 40mg pantoprazole for 90 days then reassess carafate prescribed for 30 days follow up biopsy results and plan to treat H pylori if positive. Avoid NSAIDs, alcohol and excess caffeine. Office follow up ni 2-4 weeks. Will need repeat EGD in 3 months to ensure resolution of gastric ulcer.
--- NOTE | 2025-02-05 14:56 | COLE_ITS ---
Date of service: 02/05/25 Time of Service: 14:56 Colonoscopy Report Date of procedure: 02/05/25 Pre-op diagnosis general: Screening for colorectal cancer Post-op diagnosis procedure note: same Procedure: Colonoscopy Surgeon: Sheree Kang Anesthesia Type: General:No Airway Estimated blood loss (mL): 0 Pathology: none sent Complications: None Indications: screening for colorectal cancer Prep: Miralax/Dulcolax (Good. Copious gas bubbles irrigated away) Procedure Description: Informed consent was obtained and the patient was taken to the procedure area. The patient was placed in left lateral decubitus position on the procedure table. Timeout was performed. Anesthesia was induced. A lubricated colonoscope was inserted through the anus and passed to the cecum. The cecum was identified by the ileocecal valve and the appendiceal orifice. The scope was then slowly withdrawn and the colonic and rectal mucosa examined. TI intubated and examined. It appears normal. There are no colon or rectal mass lesions, polyps, AVMs. There is no inflammatory change. No diverticulosis was seen. The scope was retroflexed in the anorectal junction examined. Uncomplicated in ternal hemorrhoids present. Assessment and plan: Screening for colorectal cancer Average risk patient Normal colonoscopy. Next screening colonoscopy will be due in 10 years.
[2025-02-05 15:00] VITALS: BP 132/78; PULSE 47; RESP 14; TEMP 36.3; O2SAT 100
--- NOTE | 2025-02-05 15:03 | W.ANESPOSTOP ---
Postoperative Evaluation Date, Time and Location Date Performed: 02/05/25 Time Performed: 15:03 Patient Location: Day Surgery Unit Vital Signs Most Recent Imported Vital Signs: Most Recent Vital Signs Temp Pulse Resp BP Pulse Ox 36.3 C L 47 L 14 132/78 100 02/05/25 15:00 02/05/25 15:00 02/05/25 15:00 02/05/25 15:00 02/05/25 15:00 Pain Score Most Recent Pain Score: Most Recent Pain Score Pain Level 0 02/05/25 12:44 Assessment Mental Status: Awake (Alert & Oriented to Patient Baseline) Airway and Respiratory Function: Patent airway with normal (patient baseline) respiratory exam Cardiovascular Function: Hemodynamically Stable Hydration Status: Adequately Hydrated Nausea & Vomiting: No Nausea or Vomiting Pain: Pt. Denies Any Pain Peripheral Nerve Block: Patient did not receive a nerve block
[2025-02-05 15:37] VITALS: BP 161/82; PULSE 43; RESP 16; TEMP 36.1; O2SAT 100
== END 2025-02-05 15:53 | disposition home or self-care (01) ==
PROVIDERS: PCP Family Medicine; Visit Provider Surgery
PROC: (CPT 43239; principal; 2025-02-05 13:45)
DX: Z12.11 Encounter for screening for malignant neoplasm of colon (principal); R10.13 Epigastric pain; K29.61 Other gastritis with bleeding; K25.9 Gastric ulcer, unspecified as acute or chronic, without hemorrhage or perforation; K20.91 Esophagitis, unspecified with bleeding
CPT/HCPCS: 43239; 45378; 88305; J2003; J2704